=== PATIENT | male | born 1925 | race Caucasian/White ===

== ENCOUNTER 2016-12-14 06:35 | Emergency (ER) | payer OTHER, BC ==
[~2016-12-14] VITALS: Ht 167.6 cm; Wt 91.2 kg
--- NOTE | ~2016-12-14 | EKG ---
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: [id number] : 1925 Requested By: Shalom Us Order Number: [id number] MD: Alvino Artis Measurements Intervals [place] Rate: 81 P: [place]: QRS: -60 QRSD: 99 T: 76 QT: 383 QTc: 445 Interpretive Statements Atrial fibrillation Inferior infarct, old Poor R wave progression Compared to ECG 03/21/2016 11:31:01 No significant change was found Electronically Signed On 12-14-2016 8:01:55 CDT by Alvino Artis [email or web address] <ELECTRONICALLY SIGNED> By: Alvino Artis MD, [facility] 12/14/16 0801 07 07 Alvino Artis MD, FACC /EPI
[~2016-12-14 06:35] MED LIST: ACCUNEB SO1.25 MG/1 INH; ADVAIR 500-501 EACH INH; ADVAIR HFA115 MCG/21 INH; ALDACTONE25 MG PO; BENAZEPRIL HCL10 MG PO; CARDIZEM CD120 MG PO; CARTIA XT120 M1 PO; CARTIA XT180 M1 PO; CARTIA XT240 M1 PO; CENTRUM SILVER1 EAC2 PO; CIPRO500 MG PO; COLACE100 MG PO; CPAP MISCELL; DIGOXIN0.125 MG/2 PO; DIGOXIN125 MCG PO; DOXYCYCLINE 10100 M1 PO; FISH OIL 1,001000 M2 PO; FUROSEMIDE 40 M40 M1 PO; HYDROCODONE-AP1 EAC6 PO; JALYN 0.5-0.41 EACH; JALYN 0.5-0.41 EACH PO; KLOR-CON 1010 MEQ PO; LANOXIN 0.120.125 M1 PO; LASIX 40 MG TAB40 MG PO; LEVALBUTER1.25 MG/0. INH; LEVAQUIN 500 M500 M2 PO; MELATONIN3 MG PO; METOLAZONE 2.52.5 M1 PO; MILK OF MA400 MG/5 M PO; MUCINEX TA600 MG/TA2 PO; MUCINEX100 MG PO; NORCO 5-325 TA1 EACH PO; PEPCID20 MG PO; PREDNISONE 10 M10 MG; PREDNISONE 10 M10 MG PO; PREDNISONE 20 M20 MG PO; PREDNISONE50 MG PO; SENOKOT-S1 TA1 PO; SPIRIVA INH; TYLENOL325 MG PO; UNICOMPLEX M TA1 TA1 PO; VENTOLIN HFA 1818 GM INH; XARELTO20 MG PO; XOPENEX 0.63 MG/3 M1 INH
[2016-12-14 07:03] LABS: HEMATOCRIT 40.7 % (42.0-52.0); MCH 30.1 pg (26.0-34.0); MCHC 34.4 g/dL (28.0-37.0); MCV 87.4 fL (80.0-100.0); RBC 4.65 mil/uL (4.50-6.00); RDW 15.4 % (10.5-14.5); WBC 7.3 thou/uL (4.0-11.0)
[2016-12-14 07:13] LABS: CALCIUM 9.5 mg/dL (8.5-10.1); CREATININE 1.4 mg/dL (0.7-1.3); POTASSIUM 4.2 mmol/L (3.5-5.1)
[2016-12-14] MEDS ORDERED: PREDNISONE 10 M10 MG PO (07:16)
[2016-12-14 07:17] LABS: APTT 35.5 Seconds (24.5-32.8); INR 1.3; PROTIME 13.9 Seconds (9.3-11.4)
[2016-12-14] MEDS ORDERED: LEVAQUIN 750 M750 MG PO (08:58)
[2016-12-14] MEDS ORDERED: PREDNISONE 20 M20 MG PO (08:58)
== END 2016-12-14 09:18 | disposition home or self-care (01) ==
LOC: ER 06:35
PROVIDERS: Emergency Medicine
DX: S01.81XA Laceration without foreign body of other part of head, initial encounter (principal); S51.812A Laceration without foreign body of left forearm, initial encounter; J44.1 Chronic obstructive pulmonary disease with (acute) exacerbation; J18.9 Pneumonia, unspecified organism; J45.901 Unspecified asthma with (acute) exacerbation; I48.91 Unspecified atrial fibrillation; Z96.653 Presence of artificial knee joint, bilateral; G89.29 Other chronic pain; Z98.890 Other specified postprocedural states; I50.9 Heart failure, unspecified; Z87.891 Personal history of nicotine dependence; W06.XXXA Fall from bed, initial encounter; Y93.89 Activity, other specified; Y92.89 Other specified places as the place of occurrence of the external cause; Y99.8 Other external cause status

== ENCOUNTER 2017-06-25 12:12 | Inpatient (IN) | payer OTHER, BC ==
[~2017-06-25] VITALS: Ht 167.6 cm; Wt 83.9 kg
--- NOTE | ~2017-06-25 | HC ---
[facility] [place] [address] CONSULTATION Name: ARIADNE RUANO Room #: 354-P ADM IN M.R.#: [id number] Admission: 06/25/17 Attend Phys: Marucs Mcdonnell MD Discharge: Date of : [birth year] Report #: [id number] THIS REPORT FOR: //name// CC: Marcus Rodas MD DATE OF SERVICE: 06/26/2017 REFERRING PROVIDER: Marcus Mcdonnell MD REASON FOR CONSULTATION: Pneumonia and hypoxemia. CHIEF COMPLAINT: Shortness of breath. HISTORY OF PRESENT ILLNESS: Our group was asked to evaluate the patient in consultation while hospitalized at [facility]. I was called this morning for evaluation. The patient admitted yesterday afternoon to the emergency department after presenting there from [facility] with complaints of increasing shortness of breath, cough productive of dark sputum, almost black he states, it is now more of a yellow sputum, no kenneth hemoptysis. Denies any significant fevers, chills, or sweats. He was noted to have some anemia during this hospital stay, but denies any visible blood loss other than some dark sputum. He is chronically anticoagulated on rivaroxaban for prior pulmonary embolism and chronic atrial fibrillation. Denies any fevers, chills, or sweats. No nocturnal dyspnea or cough. He is on nocturnal BiPAP as part of his therapy. Remains on aerosol treatments p.r.n. as well as Spiriva and Advair daily in addition to intermittent steroid use with systemic prednisone. Chest x-ray in the emergency department revealed bilateral pleural effusions with some associated atelectasis, unclear infiltrates, was started on Zosyn. I found no cultures initiated from the emergency department. OUTPATIENT MEDICATIONS: Include diltiazem 180 mg daily, Advair 500/50 twice daily, Lasix 40 mg twice daily oral, potassium chloride, Xarelto, conflicting orders the patient states he takes 15 mg twice daily at [facility], notes a 15 mg daily, our office notes a 20 mg daily; ropinirole 0.25 mg t.i.d., Spiriva once daily, multivitamin, albuterol inhaler p.r.n., Lotensin 10 mg daily, digoxin 0.125 daily, Tahmina 0.5-0.4 daily, guaifenesin 600 mg twice daily, hydrocodone p.r.n., DuoNebs q.i.d., melatonin at bedtime p.r.n., Senokot p.r.n., omega-3 fish oil. PAST MEDICAL HISTORY: 1. Severe COPD. 2. Chronic hypoxemia secondary to #1 above, on 3 liters of oxygen at baseline. [address] [address] CONSULTATION Name: ARIADNE RUANO [facility] Room #: 354-P ADM IN M.R.#: [id number] Admission: 06/25/17 Attend Phys: Marcus Mcdonnell MD Discharge: Date of : [birth year] Report #: [id number] 3. Obstructive sleep apnea, on nocturnal BiPAP. 4. Benign prostatic hypertrophy. 5. Chronic atrial fibrillation. 6. Hyperlipidemia. 7. Hypertension. 8. History of tobacco use. 9. History of Staph aureus infection of the left knee with surgery earlier this year. 10. Chronic debilitation and the resident at [facility]. SOCIAL HISTORY: As mentioned above, the patient is residing at [facility], had been doing some rehabilitative care there. He had been an active smoker a few cigarettes per day. Occasional alcohol consumption. FAMILY HISTORY: Noncontributory due to his advanced age. REVIEW OF SYSTEMS: CONSTITUTIONAL: No fevers or chills. ENT: No upper respiratory congestion, rhinorrhea, or dysphagia reported. CARDIOVASCULAR: Chronic atrial fibrillation as described. GASTROINTESTINAL: No nausea, vomiting, hematochezia, or hematemesis. GENITOURINARY: Some prostatic hypertrophy. Denies any hematuria or dysuria. INTEGUMENT: Denies any new rash, but has multiple areas of ecchymosis he reports from anticoagulants. MUSCULOSKELETAL: Generalized weakness predominantly in the right lower extremity and recent problems with left knee as described in HPI. PHYSICAL EXAMINATION: VITAL SIGNS: The patient is afebrile, pulse is 70s and irregular, respiratory rate 16, blood pressure 105/60, oxygen saturation 96% on 5 liters nasal cannula. GENERAL: This is a pleasant elderly male with mild respiratory difficulties, he is having difficulty speaking in full sentences due to dyspnea. ENT: Clear oropharynx. Mallampati 1 airway, no thrush, no erythema. NECK: Supple, no lymphadenopathy, no stridor. LUNGS: Diminished bases with expiratory rhonchi noted throughout. CARDIOVASCULAR: Heart was irregular, 2/6 systolic murmur best heard at left upper sternal border. ABDOMEN: Soft, nontender, no masses, no hepatosplenomegaly. EXTREMITIES: Revealed significant muscular atrophy noted. Left knee brace in place, 1+ edema. INTEGUMENT: Revealed multiple areas of ecchymosis, but no rash identified. NEUROLOGIC: The patient is awake, alert, oriented and appropriate. LABORATORY DATA: Chest x-ray as described in HPI, hyperinflation with new bilateral basilar effusions seen on prior x-ray. White blood cell count in the emergency department 16,000, hemoglobin 7.5, hematocrit 24, and platelet count [facility] [address] [place] [address] CONSULTATION Name: ARIADNE RUANO Room #: 354-P ADM IN M.R.#: [id number] Admission: 06/25/17 Attend Phys: Marcus Mcdonnell MD Discharge: Date of : [birth year] Report #: [id number] 202. No significant eosinophils or band forms. Chemistry profile normal except for an elevated BUN of 38 and glucose of 162. Total bilirubin 1.2. ProBNP 665 and albumin 2.6. Arterial blood gas performed on 3-1/2 liters revealed pH 7.49, pCO2 33, pO2 57, bicarbonate 24. Lactate is 1.8. IMPRESSION: 1. Decompensated diastolic congestive heart failure as evidenced by pleural effusions and mild increase in edema. 2. Lower respiratory infection, most consistent with pneumonia, currently on Zosyn, but I see no additional workup for potential pathogen. 3. Chronic obstructive pulmonary disease with acute exacerbation. 4. Acute on chronic hypoxemic respiratory failure. 5. Obstructive sleep apnea. 6. General debilitation. 7. Permanent atrial fibrillation. SUGGEST: 1. Clarify dose of rivaroxaban, should be 20 mg daily. 2. Add IPV to airway clearance. Continue with flutter valve, DuoNebs q.4 hours. Guaifenesin systemic steroids. 3. Add azithromycin to Zosyn. 4. Sputum for respiratory culture. 5. Blood cultures. 6. Nasal swab for respiratory viral panel. 7. Urinary pneumococcal legionella antigen testing. 8. Consider echocardiogram to reevaluate, most recent echo was one year ago, almost 2. 9. Follow up chest x-ray in a.m. 10. Additional recommendations to follow. Thank you for requesting our suggestions. By: [id number] Omar Sanchez MD /nt
--- NOTE | ~2017-06-25 | EKG ---
[address] [address] ELECTROCARDIOGRAM REPORT Name: ARIADNE RUANO [facility] Room #: 354-P ADM IN M.R.#: [id number] Admission: 06/25/17 Attend Phys: Marcus Mcdonnell MD Discharge: Date of : [birth year] Report #: [id number] THIS REPORT FOR: //name// [facility] ED Test Date: 2017-06-25 Test Time: 12:32:03 Pat Name: ARIDANE RUANO Department: Room: 354 Gender: M Transportation Associate: [id number] : 1925 Requested By: Luis Gates Order Number: [id number] MD: Tutu Donald Measurements Intervals [place] Rate: 73 P: [place]: QRS: -45 QRSD: 100 T: 130 QT: 380 QTc: 419 Interpretive Statements Atrial fibrillation Inferior infarct, old Anterior infarct, old Lateral leads are also involved Compared to ECG 12/14/2016 07:05:47 Poor R-wave progression no longer present Myocardial infarct finding still present Electronically Signed On 06-25-2017 15:48:22 CHAPERONE by Tutu Donald [email or web address] <ELECTRONICALLY SIGNED> By: Tutu Donald MD 06/25/17 1548 1232 1232 Tutu Donald MD /EPI
[2017-06-25 12:12] VITALS: BP 120/62
[~2017-06-25 12:12] MED LIST changes: +ANCEF 1GM1 GM/50 M1 IVPB; +BENADRYL25 MG PO; +CEFAZOLIN2 GM/100 M IVPB; +CEFUROXIME500 MG PO; +DIGOXIN250 MCG PO; +DULCOLAX10 MG RECTAL; +DUONEB 2.5-0.5 M3 ML INH; +ENSURE ACTIVE237 ML PO; +FLEET ENEMA133 ML SPRAY; -JALYN 0.5-0.41 EACH; +JUVEN PACKET1 EACH PO; +KEFLEX500 M1 PO; +LEVAQUIN 750 M750 MG PO; +MILK OF MA2400 MG/10 PO; +MIRALAX17 GM PO; +MUCINEX 600 MG PO; +NORCO 10-325 T1 EACH PO; -NORCO 5-325 TA1 EACH PO; +NYAMYC15 GM TOP; +POTASSIUM20 PO; +PREDNISONE 20 M20 M1 PO; +REQUIP 0.25 M0.25 MG PO; +SENNA8.6 MG PO; +VANCO 1 GR1 GM/250 M IVPB
[2017-06-25 12:41] LABS: HEMATOCRIT 24.2 % (42.0-52.0); HEMOGLOBIN 7.5 gm/dL (14.0-18.0); MCH 23.9 pg (26.0-34.0); MCHC 31.1 g/dL (28.0-37.0); MCV 76.8 fL (80.0-100.0); PLATELET COUNT 202 thou/uL (150-400); RBC 3.15 mil/uL (4.50-6.00); RDW 20.2 % (10.5-14.5); WBC 16.4 thou/uL (4.0-11.0)
[2017-06-25 12:44] LABS: ANION GAP 5 mmol/L (7-16); BUN 38 mg/dL (7-18); CALCIUM 8.4 mg/dL (8.5-10.1); CHLORIDE 103 mmol/L (98-107); CO2 30 mmol/L (21-32); CREATININE 1.1 mg/dL (0.7-1.3); GLUCOSE 141 mg/dL (74-106); POTASSIUM 4.6 mmol/L (3.5-5.1); SODIUM 138 mmol/L (136-145)
[2017-06-25 12:46] LABS: ABG SAMPLE TYPE ARTERIAL; BE(vivo) 0.9 mmol/L (-2 to +3); HCO3 24.1 mmol/L (22.0-26.0); LACTATE 1.87 mmol/L (0.5-2.0); O2(CT) 10.2 mL/dL (15.0-23.0); O2Hb 88.6 % (92.0-98.0); PCO2 32.5 mmHg (35.0-45.0); PO2 57.7 mmHg (80.0-100.0); STICK SITE R.BRACHIAL; pH 7.488 (7.360-7.450); sO2 92.3 % (92.0-98.0); tCO2 25.1 mmol/L (24.0-30.0)
[2017-06-25 12:48] LABS: MANUAL DIFF YES
[2017-06-25 12:53] LABS: TROPONIN-I < 0.04 ng/mL (<0.06)
[2017-06-25 13:19] LABS: ABSOLUTE NEUTROPHILS 14.8 thou/uL (1.4-8.2); TOTAL CELL COUNT 100
[2017-06-25 13:20] LABS: ANISOCYTOSIS 1+
[2017-06-25 14:27] VITALS: BP 120/62
[2017-06-25 16:40] VITALS: BP 106/64
[2017-06-25] MEDS ORDERED: NORCO 10-325 T1 EACH PO (17:10)
[2017-06-25] MEDS ORDERED: NYAMYC15 GM TOP (17:11)
[2017-06-25] MEDS ORDERED: BISACODYL SUPP10 MG RECTAL (17:12)
[2017-06-25] MEDS ORDERED: BENADRYL25 MG PO (17:13)
[2017-06-25] MEDS ORDERED: CEFUROXIME500 MG PO (17:14)
[2017-06-25] MEDS ORDERED: PREDNISONE 20 M20 MG PO (17:17)
[2017-06-25] MEDS ORDERED: XARELTO15 MG PO (17:24)
[2017-06-25] MEDS ORDERED: LASIX 40 MG TAB40 M2 PO (17:24)
[2017-06-25] MEDS ORDERED: UNICOMPLEX M TA1 TA1 PO (17:25)
[2017-06-25] MEDS ORDERED: MILK OF MA2400 MG/10 PO (17:26)
[2017-06-25] MEDS ORDERED: SENNA8.6 MG PO (17:27)
[2017-06-25] MEDS ORDERED: METOLAZONE 2.52.5 M1 PO (17:29)
[2017-06-25] MEDS ORDERED: DUONEB 2.5-0.5 M3 ML INH (17:30)
[2017-06-25] MEDS ORDERED: SPIRIVA INH (17:31)
[2017-06-25 18:56] VITALS: BP 95/54
[2017-06-25 23:38] VITALS: BP 108/57
[2017-06-26 05:04] VITALS: BP 94/59
[2017-06-26 05:21] LABS: HEMATOCRIT 22.4 % (42.0-52.0); HEMOGLOBIN 7.1 gm/dL (14.0-18.0); MCH 24.4 pg (26.0-34.0); MCHC 31.8 g/dL (28.0-37.0); MCV 76.9 fL (80.0-100.0); RBC 2.92 mil/uL (4.50-6.00); RDW 20.6 % (10.5-14.5); WBC 6.4 thou/uL (4.0-11.0)
[2017-06-26 05:40] LABS: ALBUMIN 2.6 g/dL (3.4-5.0); CALCIUM 8.5 mg/dL (8.5-10.1); CREATININE 1.2 mg/dL (0.7-1.3); POTASSIUM 4.4 mmol/L (3.5-5.1); TOTAL BILIRUBIN 1.2 mg/dL (<0.1-1.0); TOTAL PROTEIN 5.6 g/dL (6.4-8.2)
[2017-06-26 07:19] VITALS: BP 105/60
[2017-06-26 11:56] VITALS: BP 117/59
[2017-06-26 19:30] VITALS: BP 122/56
[2017-06-27 04:00] VITALS: BP 119/55
[2017-06-27 07:45] VITALS: BP 110/81
[2017-06-27 11:30] VITALS: BP 111/59
[2017-06-27 13:38] LABS: % SATURATION 3 % (20-39); IRON 12 ug/dL (65-175); TIBC 353 ug/dL (250-450); UIBC 341 ug/dL
[2017-06-27 15:36] VITALS: BP 106/59
[2017-06-27 19:15] VITALS: BP 124/71
[2017-06-28 03:16] LABS: HEMOGLOBIN 7.1 gm/dL (14.0-18.0); MCH 23.9 pg (26.0-34.0); MCHC 30.8 g/dL (28.0-37.0); MCV 77.6 fL (80.0-100.0); PLATELET COUNT 162 thou/uL (150-400); RBC 2.96 mil/uL (4.50-6.00); RDW 20.9 % (10.5-14.5); WBC 8.7 thou/uL (4.0-11.0)
[2017-06-28 03:19] LABS: MANUAL DIFF YES
[2017-06-28 04:00] VITALS: BP 123/62
[2017-06-28 04:31] LABS: ABSOLUTE NEUTROPHILS 8.4 thou/uL (1.4-8.2); ANISOCYTOSIS 3+; HYPOCHROMASIA SLIGHT; MACROCYTES 1+; MICROCYTES 2+; TOTAL CELL COUNT 100
[2017-06-28 07:23] VITALS: BP 120/62
[2017-06-28 13:19] VITALS: BP 109/58; BP 132/55
[2017-06-28 16:49] VITALS: BP 132/55
[2017-06-28 20:00] VITALS: BP 132/70
[2017-06-29 04:00] VITALS: BP 127/63
[2017-06-29 04:24] LABS: HEMATOCRIT 24.8 % (42.0-52.0)
[2017-06-29 07:00] VITALS: BP 125/73
== END 2017-06-29 14:06 | disposition hospice, home (50) | DRG 177 ==
LOC: ER 12:12 → 3W 13:36 → EROBS 13:36 → 3W 15:18
PROVIDERS: Hospitalist; Internal Medicine Gastroenterology; Nurse Practitioner
PROC: 30233N1 Transfusion of Nonautologous Red Blood Cells into Peripheral Vein, Percutaneous Approach (ICD-10-PCS; principal; 2017-06-28)
DX: J69.0 Pneumonitis due to inhalation of food and vomit (principal); J96.21 Acute and chronic respiratory failure with hypoxia; I50.33 Acute on chronic diastolic (congestive) heart failure; K92.2 Gastrointestinal hemorrhage, unspecified; J44.1 Chronic obstructive pulmonary disease with (acute) exacerbation; D62 Acute posthemorrhagic anemia; E46 Unspecified protein-calorie malnutrition; Z96.653 Presence of artificial knee joint, bilateral; G89.29 Other chronic pain; M54.9 Dorsalgia, unspecified; N40.0 Benign prostatic hyperplasia without lower urinary tract symptoms; I11.0 Hypertensive heart disease with heart failure; M19.90 Unspecified osteoarthritis, unspecified site; G47.33 Obstructive sleep apnea (adult) (pediatric); I48.2 Chronic atrial fibrillation; E78.5 Hyperlipidemia, unspecified; I35.0 Nonrheumatic aortic (valve) stenosis; J22 Unspecified acute lower respiratory infection; F32.9 Major depressive disorder, single episode, unspecified; Z66 Do not resuscitate; Z82.49 Family history of ischemic heart disease and other diseases of the circulatory system; Z88.8 Allergy status to other drugs, medicaments and biological substances; Z87.891 Personal history of nicotine dependence; Z79.01 Long term (current) use of anticoagulants; Z79.899 Other long term (current) drug therapy; Z68.29 Body mass index [BMI] 29.0-29.9, adult
CPT/HCPCS: 10879